=== PATIENT | male | born 1965 | race Caucasian/White ===

== ENCOUNTER 2016-11-06 05:57 | Emergency (ER) | payer MEDICAID ==
[2016-11-06 06:14] LABS: % IMMATURE GRANULYOCYTES 0.3 % (0.0-1.1); ABSOLUTE IMMATURE GRANULOCYTES 0.04 10^3/uL (0.00-0.10); ADD DIFF? NO; ADD MORPH? NO; ADD SCAN? NO; ATYPICAL LYMPHOCYTE FLAG 10 (0-99); FRAGMENT RBC FLAG 0 (0-99); HEMATOCRIT 52.3 % (40.0-51.0); HEMOGLOBIN 18.3 g/dL (13.7-17.5); LEFT SHIFT FLG 10 (0-99); LIPEMIA HEMOLYSIS FLAG 90 (0-99); MEAN CELL HEMOGLOBIN 31.6 pg (27.9-34.1); MEAN CELL VOLUME 90.2 fL (81.5-99.8); MEAN PLATELET VOLUME 10.1 fL (8.7-11.7); PLATELET CLUMPS FLAG 0 (0-99); PLATELET COUNT 325 10^3/uL (150-400); RED CELL DISTRIBUTION WIDTH 11.8 % (11.5-15.2)
[2016-11-06] MEDS ORDERED: NS 1,000 ML IV ONE ×2 (06:14)
[2016-11-06] MEDS ORDERED: ONDANSETRON 4 MG/2 ML VIAL IVP ONE (06:14)
--- NOTE | 2016-11-06 06:15 | EDPHY ---
H & P HPI/ROS: HPI The patient presents with nausea and vomiting which began at 6:30 p.m. last night. He has had about 6 episodes of nonbloody nonbilious emesis. He has not had any diarrhea. The vomiting is associated with diffuse achy abdominal pain which has been intermittent which feels like gas to him. Last month, he was admitted to the hospital for what was thought to be a viral gastroenteritis. He had tachycardia and diarrhea at that time. Stool cultures were negative. He followed up with Dr. Tsai at [facility] and since he was discharged from the hospital he generally feels more tired than usual. He is staying at a custodial and there are many people who are sick currently there. REVIEW OF SYSTEMS Constitutional: No fever, no chills. Eyes: No discharge. ENT: No sore throat. Cardiovascular: No chest pain, no palpitations. Respiratory: No cough, no shortness of breath. Gastrointestinal: No abdominal pain, no vomiting. Genitourinary: No hematuria. Musculoskeletal: No back pain. Skin: No rashes. Neurological: No headache. PMHx: Hypothyroidism Soc Hx: Lives at a custodial, works as a veterinary nurse, denies any alcohol use PHYSICAL General Appearance: Alert, no distress Eyes: Pupils equal and round no pallor or injection ENT, Mouth: Mucous membranes dry Respiratory: There are no retractions, lungs are clear to auscultation Cardiovascular: Regular rate and rhythm Gastrointestinal: Abdomen is soft with very mild left upper quadrant tenderness without rebound or guarding. Neurological: A&O, moves all extremities Skin: Warm and dry, no rashes Musculoskeletal: Neck is supple non tender Extremities: symmetrical, full range of motion Psychiatric: Patient is oriented X 3, there is no agitation Source: Patient, EMS - Personal History Tetanus Vaccine Date: within 10 years - Medical/Surgical History Hx Asthma: Yes Hx Chronic Respiratory Disease: Yes Hx Diabetes: No Hx Cardiac Disease: Yes Hx Renal Disease: No Hx Cirrhosis: No Hx Alcoholism: No Hx HIV/AIDS: No Hx Splenectomy or Spleen Trauma: No Other PMH: asthma, COPD, WANDERING ATRIAL PACEMAKER, HIATAL HERNIA, GERD - Social History Smoking Status: Former smoker Constitutional: Initial Vital Signs Temperature (C) 37.1 C 11/06/16 06:00 Heart Rate 96 11/06/16 06:00 Respiratory Rate 16 11/06/16 06:00 Blood Pressure 127/81 H 11/06/16 06:00 O2 Sat (%) 93 11/06/16 06:00 O2 Delivery Mode Room Air Allergies/Adverse Reactions: omeprazole Allergy (Unknown, Verified 10/20/16 09:15) Home Medications: Medication Instructions Recorded Ascorbic Acid [Vitamin C 500 mg 500 mg PO DAILY 10/20/16 (*)] Cholecalciferol Vit D3 [Vitamin D3 2,000 units PO DAILY 10/20/16 2000 units tab (OTC)] Levothyroxine [Synthroid 100 mcg 100 mcg PO DAILY06 10/20/16 (*)] Acetaminophen [Tylenol 325mg (*)] 650 mg PO Q4HRS PRN #0 tab 10/21/16 Ibuprofen [Motrin (*)] 400 mg PO Q4HRS PRN #0 tab 10/21/16 Promethazine HCl [Phenergan 25mg 12.5 - 25 mg PO Q6HRS PRN #20 tab 10/21/16 (*)] oxyCODONE IR [Oxycodone Ir (*)] 5 - 10 mg PO Q3HRS PRN #15 tab 10/21/16 Ondansetron Odt [Zofran Odt 4 mg 4 mg PO Q4 PRN #10 tab 11/06/16 (*)] Medical Decision Making ED Course/Re-evaluation: 6:10 a.m.- I met the paramedics at the bedside to obtain the report. We will place an IV and give the patient Zofran. We will check basic labs. 6:50 a.m.- The patient's labs have resulted and are unremarkable, except for leukocytosis which could be related to stress response from vomiting.. He is able to tolerate ice chips without difficulty. I feel he likely is mildly dehydrated from a gastroenteritis. He is currently receiving IV fluids, afterwards we will p. o. challenge him and he will likely be able to go home. Differential Diagnosis: This is a 51-year-old man with recent hospital admission for viral gastroenteritis, hypothyroidism who presents brought in by ambulance for nausea and vomiting. On exam, his vital signs are normal. He has mild left upper quadrant abdominal pain. Differential diagnosis includes viral gastroenteritis, toxin mediated enterocolitis, pancreatitis, less likely diverticulitis. - Data Points Laboratory Results: Laboratory Results 11/06/16 06:00 11/06/16 06:00 11/06/16 06:00 WBC 13.12 H 10^3/uL (3.80-9.50) RBC 5.80 10^6/uL (4.40-6.38) Hgb 18.3 H g/dL (13.7-17.5) Hct 52.3 H % (40.0-51.0) MCV 90.2 fL (81.5-99.8) MCH 31.6 pg (27.9-34.1) MCHC 35.0 g/dL (32.4-36.7) RDW 11.8 % (11.5-15.2) Plt Count 325 10^3/uL (150-400) MPV 10.1 fL (8.7-11.7) Neut % (Auto) 89.3 H % (39.3-74.2) Lymph % (Auto) 4.3 L % (15.0-45.0) [place] % (Auto) 5.6 % (4.5-13.0) Eos % (Auto) 0.1 L % (0.6-7.6) Baso % (Auto) 0.4 % (0.3-1.7) Nucleat RBC Rel Count 0.0 % (0.0-0.2) Absolute Neuts (auto) 11.72 H 10^3/uL (1.70-6.50) Absolute Lymphs (auto) 0.56 L 10^3/uL (1.00-3.00) Absolute Monos (auto) 0.74 10^3/uL (0.30-0.80) Absolute Eos (auto) 0.01 L 10^3/uL (0.03-0.40) Absolute Basos (auto) 0.05 10^3/uL (0.02-0.10) Absolute Nucleated RBC 0.00 10^3/uL (0-0.01) Immature Gran % 0.3 % (0.0-1.1) Immature Gran # 0.04 10^3/uL (0.00-0.10) Sodium 145 H mEq/L (134-144) Potassium 4.4 mEq/L (3.5-5.2) Chloride 105 mEq/L (97-110) Carbon Dioxide 24 mEq/l (22-31) Anion Gap 16 mEq/L (8-16) BUN 16 mg/dL (7-23) Creatinine 0.9 mg/dL (0.7-1.3) Estimated GFR > 60 Glucose 123 H mg/dL (70-100) Calcium 9.2 mg/dL (8.5-10.4) Total Bilirubin 1.1 mg/dL (0.1-1.4) AST 26 IU/L (17-59) ALT 29 IU/L (21-72) Alkaline Phosphatase 84 IU/L (38-126) Total Protein 7.3 g/dL (6.3-8.2) Albumin 4.3 g/dL (3.5-5.0) Lipase 24.0 IU/L (23-300) Medications Given: Discontinued Medications Sodium Chloride (Ns) 1,000 mls @ 0 mls/hr IV ONCE ONE PRN Reason: Wide Open Stop: 11/06/16 06:15 Last Admin: 11/06/16 06:15 Dose: 1,000 mls Sodium Chloride (Ns) 1,000 mls @ 0 mls/hr IV ONCE ONE PRN Reason: Wide Open Stop: 11/06/16 06:15 Last Admin: 11/06/16 06:15 Dose: 1,000 mls Ondansetron HCl (Zofran) 4 mg IVP EDNOW ONE Stop: 11/06/16 06:15 Last Admin: 11/06/16 06:15 Dose: 4 mg Departure - Departure Disposition: Home, Routine, Self-Care Clinical Impression: Nausea & vomiting Condition: Good Instructions: Acute Nausea and Vomiting (ED) Additional Instructions: Please make sure to drink plenty of clear fluids. He should return to the emergency room if your worse in any way. Referrals: Chantel Duffy, PAC [Primary Care Provider] - As per Instructions Prescriptions: Ondansetron Odt [Zofran Odt 4 mg (*)] 4 mg PO Q4 PRN #10 tab PRN Reason: Nausea/Vomiting, Can'T Take Po
[2016-11-06 06:24] LABS: ALANINE AMINOTRANSFERASE 29 IU/L (21-72); ALBUMIN 4.3 g/dL (3.5-5.0); ALKALINE PHOSPHATASE 84 IU/L (38-126); ANION GAP 16 mEq/L (8-16); ASPARTATE AMINOTRANSFERASE 26 IU/L (17-59); BILIRUBIN,TOTAL 1.1 mg/dL (0.1-1.4); CALCIUM 9.2 mg/dL (8.5-10.4); CARBON DIOXIDE 24 mEq/l (22-31); CHLORIDE 105 mEq/L (97-110); CREATININE 0.9 mg/dL (0.7-1.3); GLOMERULAR FILTRATION RATE > 60; GLUCOSE 123 mg/dL (70-100); POTASSIUM 4.4 mEq/L (3.5-5.2); SODIUM 145 mEq/L (134-144); TOTAL PROTEIN 7.3 g/dL (6.3-8.2)
[2016-11-06 08:36] VITALS: BP 109/87; PULSE 88; RESP 14; TEMP 99.1; O2SAT 91
== END 2016-11-06 08:52 | disposition home or self-care (01) ==
LOC: EDUNIT#
DX: R11.2 Nausea with vomiting, unspecified (principal); J44.9 Chronic obstructive pulmonary disease, unspecified; Z95.0 Presence of cardiac pacemaker; Z87.891 Personal history of nicotine dependence
CPT/HCPCS: 96374; J2405

== ENCOUNTER 2016-11-06 09:38 | Emergency (ER) | payer MEDICAID ==
[2016-11-06 09:46] VITALS: BP 129/80; PULSE 102; RESP 20; TEMP 98.6; O2SAT 93
--- NOTE | 2016-11-06 09:54 | EDPHY ---
H & P Stated Complaint: abd pain diarrhea/just dc this am from ed for same Time Seen by Provider: 11/06/16 09:53 HPI/ROS: CHIEF COMPLAINT: Abdominal pain and diarrhea HISTORY OF PRESENT ILLNESS: The patient is a homeless 51-year-old male who presents to the ED with complaints of abdominal pain and diarrhea. He was in the emergency department last night and received IV fluids and Zofran. He was discharged several hours ago. He returns to the ED today complaining of ongoing diarrhea. While in the emergency department earlier today the patient was noted not to have diarrhea. Additionally, the patient was admitted to the hospital the last week of September for a overnight stay for presumed viral gastroenteritis. At that point time he was noted to have a negative stool culture as well as C diff toxin essay. REVIEW OF SYSTEMS: A comprehensive 10 point review of systems is otherwise negative aside from elements mentioned in the history of present illness. Source: Patient - Personal History Current Tetanus/Diphtheria Vaccine: Yes Tetanus Vaccine Date: within 10 years - Medical/Surgical History Hx Asthma: Yes Hx Chronic Respiratory Disease: Yes Hx Diabetes: No Hx Cardiac Disease: Yes Hx Renal Disease: No Hx Cirrhosis: No Hx Alcoholism: No Hx HIV/AIDS: No Hx Splenectomy or Spleen Trauma: No Other PMH: asthma, COPD, WANDERING ATRIAL PACEMAKER, HIATAL HERNIA, GERD - Social History Smoking Status: Former smoker - Physical Exam Exam: General Appearance: Alert, no distress Eyes: Pupils equal and round no pallor or injection ENT, Mouth: Mucous membranes moist Respiratory: There are no retractions, lungs are clear to auscultation Cardiovascular: Regular rate and rhythm Gastrointestinal: Abdomen is soft and nontender, no masses, bowel sounds normal Neurological: A&O, normal motor function, normal sensory exam, normal cranial nerves Skin: Warm and dry, no rashes Musculoskeletal: Neck is supple nontender Extremities: symmetrical, full range of motion Constitutional: Initial Vital Signs Temperature (C) 37 C 11/06/16 09:43 Heart Rate 102 H 11/06/16 09:43 Respiratory Rate 20 11/06/16 09:43 Blood Pressure 129/80 H 11/06/16 09:43 O2 Sat (%) 93 11/06/16 09:43 O2 Delivery Mode Room Air Allergies/Adverse Reactions: omeprazole Allergy (Unknown, Verified 11/06/16 09:42) Home Medications: Medication Instructions Recorded Ascorbic Acid [Vitamin C 500 mg 500 mg PO DAILY 10/20/16 (*)] Cholecalciferol Vit D3 [Vitamin D3 2,000 units PO DAILY 10/20/16 2000 units tab (OTC)] Levothyroxine [Synthroid 100 mcg 100 mcg PO DAILY06 10/20/16 (*)] Acetaminophen [Tylenol 325mg (*)] 650 mg PO Q4HRS PRN #0 tab 10/21/16 Ibuprofen [Motrin (*)] 400 mg PO Q4HRS PRN #0 tab 10/21/16 Promethazine HCl [Phenergan 25mg 12.5 - 25 mg PO Q6HRS PRN #20 tab 10/21/16 (*)] oxyCODONE IR [Oxycodone Ir (*)] 5 - 10 mg PO Q3HRS PRN #15 tab 10/21/16 Ondansetron Odt [Zofran Odt 4 mg 4 mg PO Q4 PRN #10 tab 11/06/16 (*)] Medical Decision Making ED Course/Re-evaluation: I reviewed the patient's past medical records his laboratory studies from last night and prior microbiology results. The patient's abdominal examination is benign. He presents to the ED secondary to ongoing watery diarrhea in the setting of acute viral gastroenteritis. The patient has had no vomiting. He is hemodynamically stable. At this point time the patient is tolerating p.o. without vomiting. I do not feel that he requires additional IV fluid rehydration. The patient has been provided a prescription for Zofran which he is not yet filled. I have stressed to the patient the importance of using Imodium. I do not feel that further workup is indicated. The patient will be discharged from the emergency department with customary return precautions. Departure - Departure Disposition: Home, Routine, Self-Care Clinical Impression: Acute gastroenteritis Condition: Good Instructions: Acute Nausea and Vomiting (ED) Additional Instructions: 1. Zofran as needed for nausea 2. Use Imodium as directed up to 4 times a day for diarrhea. 3. Return to the ED for fever, severe abdominal pain or other acute concerns. 4. Please schedule a follow-up appointment with your primary care provider for a recheck in the next 1-2 days Referrals: Chantel Duffy, PAC [Primary Care Provider] - As per Instructions
== END 2016-11-06 10:18 | disposition home or self-care (01) ==
DX: K52.9 Noninfective gastroenteritis and colitis, unspecified (principal); J44.9 Chronic obstructive pulmonary disease, unspecified; Z95.0 Presence of cardiac pacemaker; Z87.891 Personal history of nicotine dependence

== ENCOUNTER 2017-02-24 18:11 | Emergency (ER) | payer MEDICAID ==
--- NOTE | 2017-02-24 18:43 | EDPHY ---
HPI/HX/ROS/PE/MDM Narrative: CHIEF COMPLAINT: Fatigue, seeking accommodation to be able to use CPAP tonight HPI: The patient is a homeless 51 y/o male, with a history of sleep apnea, complaining of fatigue and now-resolved ataxia onset upon waking this morning. He reports a few weeks ago he began treatment for sleep apnea with a CPAP device. He recently lost housing accomodations and was unable to plug in his CPAP last night as he slept outside. This morning he woke with ataxia and dyspnea that resolved after 15 minutes. He describes the ataxia as dizziness, difficulty with coordination, and feeling unsure of my footing. Within an hour of waking he felt mostly improved, but had some mild persisting fatigue throughout the day. He denies any falls or trauma. His symptoms felt exactly the same as his sleep apnea symptoms prior to CPAP treatment. He is primarily seeking assistance finding lodging tonight to use his CPAP to avoid recurrent symptoms. He denies blurred vision, diplopia, weakness, paresthesias. No history of hypertension, hyperlipidemia, cardiac disease, anticoagulants or aspirin use. REVIEW OF SYSTEMS: Aside from elements discussed in the HPI, a comprehensive 10-point review of systems was reviewed and is negative. PAST MEDICAL HISTORY: Obstructive sleep apnea (50+ episodes per hour without CPAP, vs. 6 episodes with), hypothyroidism, multifocal atrial tachycardia SOCIAL HISTORY: Homeless, recently in homeless housing which ended 02/23/17. Former smoker, Alcohol consumption rare. PCP at [facility]. VITAL SIGNS: Reviewed by me GENERAL: Well-developed, well-nourished, resting comfortably in no respiratory distress. HEENT: Atraumatic. Eyes: No icterus, no injection. Mouth: moist mucous membranes. No erythema or lesions. Ears: Right TM obscured by cerumen. Neck: supple with no adenopathy. LUNGS: Clear to auscultation bilaterally, no wheezes, rhonchi or rales. CARDIAC: Regular rate and rhythm, no rubs, murmurs or gallops. ABDOMEN: Soft, nontender, nondistended, bowel sounds normal. BACK: No CVA tenderness. EXTREMITIES: No trauma. No edema. Range of motion is normal throughout. NEURO: Alert and oriented, grossly nonfocal. No pronator drift. Face symmetric. Normal strength in all extremities. Normal [id number]. Normal [id number]. Normal gait. SKIN: Warm and dry, no rash. PSYCHIATRIC: Normal mentation, no agitation. Portions of this note were transcribed by a medical supervisor. I personally performed a history, physical exam, medical decision making, and confirmed accuracy of information the transcribed note. ED Course: distribution manager to see. 51-year-old male with history of ataxia which she states develops whenever he is unable to use his CPAP machine. He describes feeling pain discoordinated when he wakes in the morning which lasts for 15-20 minutes. Currently he has a normal neurologic exam and no headache. He is requesting assistance with finding a place to sleep tonight where he can plug in his CPAP machine. Unfortunately, we were unable to assist the patient finding accommodations for this evening, however, case management will work to have him placed in a alf starting tomorrow. MDM: Patient seen by case management. On review the records that demonstrates the patient has had history previously of seeking social supports by emergency department visit. Rosalva, from ED case management, consulted with the patient. Unfortunately, there is no alf beds available for the patient. Contact was also made with surrounding counties including [facility] and [place] to search for possible placement. Case management will make contact with the alf tomorrow to ensure that the patient has a bed for tomorrow evening. Differential diagnoses for the patient's symptom complex was considered including but not limited to hypoxia, stroke, TIA, electrolyte abnormalities, drug or alcohol intoxication, drug or alcohol withdrawal. General Time Seen by Provider: 02/24/17 18:20 Initial Vital Signs: Initial Vital Signs Temperature (C) 36.8 C 02/24/17 18:16 Heart Rate 66 02/24/17 18:16 Respiratory Rate 20 02/24/17 18:16 Blood Pressure 119/81 H 02/24/17 18:16 O2 Sat (%) 94 02/24/17 18:16 O2 Delivery Mode Room Air Allergies/Adverse Reactions: omeprazole Allergy (Unknown, Verified 02/24/17 18:15) Home Medications: Medication Instructions Recorded Ascorbic Acid [Vitamin C 500 mg 500 mg PO DAILY 10/20/16 (*)] Cholecalciferol Vit D3 [Vitamin D3 2,000 units PO DAILY 10/20/16 2000 units tab (OTC)] Levothyroxine [Synthroid 100 mcg 100 mcg PO DAILY06 10/20/16 (*)] Acetaminophen [Tylenol 325mg (*)] 650 mg PO Q4HRS PRN #0 tab 10/21/16 Minoxidil 02/24/17 Departure - Departure Disposition: Home, Routine, Self-Care Clinical Impression: Obstructive sleep apnea Fatigue Qualifiers: Fatigue type: other Qualified Code(s): R53.83 - Other fatigue Condition: Good Instructions: Fatigue (ED) Additional Instructions: 1. Follow up with resources provided by case management. 2. Follow up with your primary care provider for symptoms not improved over the next 2-3 days. 3. Return to the ED for any worsening of condition such as vision changes, weakness or numbness on one side of your body, or severe headache. Referrals: Juliette Hedrick DO [Primary Care Provider] - As per Instructions Report Scribed for: Lisa Mccullough Report Scribed by: Sangita Lizarraga Date of Report: 02/24/17 Time of Report: 18:44
[2017-02-24 19:39] VITALS: BP 122/74; PULSE 70; RESP 14; TEMP 98.1; O2SAT 93
== END 2017-02-24 19:38 | disposition home or self-care (01) ==
DX: G47.33 Obstructive sleep apnea (adult) (pediatric) (principal)

== ENCOUNTER 2017-02-27 18:04 | Emergency (ER) | payer MEDICAID ==
[2017-02-27 18:10] VITALS: TEMP 98.8
--- NOTE | 2017-02-27 18:25 | EDPHY ---
H & P Time Seen by Provider: 02/27/17 18:21 HPI/ROS: Chief complaint. Chest pain HPI. 51-year-old male presents emergency department with chest pain that began this morning. He also had it yesterday. He describes tightness across his chest. No radiation. He describes as worse with walking. Shortness of breath and some nausea. No fever, cough. Vomited 2 days ago. No leg symptoms seen 3 days ago for respiratory difficulty as the [facility] closed and he was unable to plug in his CPAP machine. He stated the holiday and last night. ROS Constitutional. no fever/chills, no weakness Eyes. no problems with vision ENT. no sore throat, no nasal drainage Cardiovascular. Chest tightness Respiratory. Shortness of breath Abdominal. no abdominal pain, no nausea/vomiting, no diarrhea . no problems urinating MS. no calf pain/swelling, no neck/back pain, no joint pain Skin. no rash Lymph. no swollen glands Neuro. no headache, no dizziness, no difficulty walking or with speech Past Medical/Surgical History: COPD, asthma. He does not take any medications for these. He describes wandering atrial pacemaker, hiatal hernia, GERD. Family history grandfather had angina Social History: Single, homeless, nonsmoker, no alcohol Smoking Status: Former smoker Physical Exam: General Appearance: Alert well-developed male no distress vital signs are stable Eyes: Pupils equal and round no pallor or injection. ENT, Mouth: Mucous membranes are moist. Respiratory: There are no retractions, lungs are clear to auscultation. Cardiovascular: Regular rate and rhythm. Gastrointestinal: Abdomen is soft and nontender, no masses, bowel sounds normal. Neurological: Awake and alert, sensory and motor exams grossly normal. Skin: Warm and dry, no rashes. Musculoskeletal: Neck is supple nontender. Extremities symmetrical, full range of motion. Psychiatric: Patient is oriented X 3, there is no agitation. Constitutional: Initial Vital Signs Temperature (C) 37.1 C 02/27/17 18:08 Heart Rate 75 02/27/17 18:08 Respiratory Rate 16 02/27/17 18:08 Blood Pressure 129/78 H 02/27/17 18:08 O2 Sat (%) 97 02/27/17 18:08 O2 Delivery Mode Room Air Allergies/Adverse Reactions: omeprazole Allergy (Unknown, Verified 02/27/17 18:08) Home Medications: Medication Instructions Recorded Ascorbic Acid [Vitamin C 500 mg 500 mg PO DAILY 10/20/16 (*)] Cholecalciferol Vit D3 [Vitamin D3 2,000 units PO DAILY 10/20/16 2000 units tab (OTC)] Levothyroxine [Synthroid 100 mcg 100 mcg PO DAILY06 10/20/16 (*)] Acetaminophen [Tylenol 325mg (*)] 650 mg PO Q4HRS PRN #0 tab 10/21/16 Minoxidil 02/24/17 Ondansetron 02/27/17 Medical Decision Making - Diagnostics EKG Interpretation: EKG interpreted by me shows normal sinus rhythm with normal interval and left axis deviation. QRS is normal there is no significant ST elevation or depression. No arrhythmia. The rate is 70 EKG 2. At 8:30 p.m. shows normal sinus rhythm normal interval and left axis deviation no significant ST elevation or depression. No arrhythmia. The rate is 66. No change from previous EKG Imaging Results: Imaging Impressions Chest X-Ray 02/27/17 19:20 Impression: Negative frontal chest radiograph. One-view chest x-ray reviewed by me and is negative for active disease Procedures: IV normal saline, monitor ED Course/Re-evaluation: Re-evaluation 8:15 p.m. patient is stable. 1st troponin is negative. EKG is normal. Re-evaluation 10:00 p.m. patient is stable. No chest discomfort. 2nd troponin, EKG are normal Normal. Patient and I discussed treatment plan and lab results including criteria for return. We discussed importance of follow-up further evaluation. He expresses understanding and agreement Differential Diagnosis: I considered acute coronary syndrome, COPD exacerbation, pulmonary embolus, pneumonia - Data Points Laboratory Results: Laboratory Results 02/27/17 18:25 02/27/17 18:25 02/27/17 02/27/17 02/27/17 21:00 18:25 18:25 WBC RBC Hgb Hct MCV MCH MCHC RDW Plt Count MPV Neut % (Auto) Lymph % (Auto) [place] % (Auto) Eos % (Auto) Baso % (Auto) Nucleat RBC Rel Count Absolute Neuts (auto) Absolute Lymphs (auto) Absolute Monos (auto) Absolute Eos (auto) Absolute Basos (auto) Absolute Nucleated RBC Immature Gran % Immature Gran # D-Dimer 0.34 ug/mLFEU ug/mLFEU (0.00-0.50) Sodium 138 mEq/L mEq/L (134-144) Potassium 3.9 mEq/L mEq/L (3.5-5.2) Chloride 102 mEq/L mEq/L (97-110) Carbon Dioxide 26 mEq/l mEq/l (22-31) Anion Gap 10 mEq/L mEq/L (8-16) BUN 16 mg/dL mg/dL (7-23) Creatinine 1.0 mg/dL mg/dL (0.7-1.3) Estimated GFR > 60 Glucose 91 mg/dL mg/dL (70-100) Calcium 9.0 mg/dL mg/dL (8.5-10.4) Troponin I < 0.012 ng/mL ng/mL < 0.012 ng/mL ng/mL (0-0.034) (0-0.034) 02/27/17 18:25 WBC 9.01 10^3/uL 10^3/uL (3.80-9.50) RBC 5.33 10^6/uL 10^6/uL (4.40-6.38) Hgb 16.2 g/dL g/dL (13.7-17.5) Hct 47.6 % % (40.0-51.0) MCV 89.3 fL fL (81.5-99.8) MCH 30.4 pg pg (27.9-34.1) MCHC 34.0 g/dL g/dL (32.4-36.7) RDW 12.0 % % (11.5-15.2) Plt Count 232 10^3/uL 10^3/uL (150-400) MPV 9.9 fL fL (8.7-11.7) Neut % (Auto) 69.0 % % (39.3-74.2) Lymph % (Auto) 18.2 % % (15.0-45.0) [place] % (Auto) 11.5 % % (4.5-13.0) Eos % (Auto) 0.8 % % (0.6-7.6) Baso % (Auto) 0.3 % % (0.3-1.7) Nucleat RBC Rel Count 0.0 % % (0.0-0.2) Absolute Neuts (auto) 6.21 10^3/uL 10^3/uL (1.70-6.50) Absolute Lymphs (auto) 1.64 10^3/uL 10^3/uL (1.00-3.00) Absolute Monos (auto) 1.04 10^3/uL H 10^3/uL (0.30-0.80) Absolute Eos (auto) 0.07 10^3/uL 10^3/uL (0.03-0.40) Absolute Basos (auto) 0.03 10^3/uL 10^3/uL (0.02-0.10) Absolute Nucleated RBC 0.00 10^3/uL 10^3/uL (0-0.01) Immature Gran % 0.2 % % (0.0-1.1) Immature Gran # 0.02 10^3/uL 10^3/uL (0.00-0.10) D-Dimer Sodium Potassium Chloride Carbon Dioxide Anion Gap BUN Creatinine Estimated GFR Glucose Calcium Troponin I Medications Given: Discontinued Medications Aspirin (Aspirin) 324 mg PO EDNOW ONE Stop: 02/27/17 19:20 Last Admin: 02/27/17 19:32 Dose: 324 mg Departure - Departure Disposition: Home, Routine, Self-Care Clinical Impression: Chest pain Qualifiers: Chest pain type: unspecified Qualified Code(s): R07.9 - Chest pain, unspecified Condition: Good Instructions: Chest Pain (ED) Additional Instructions: Take 1 aspirin daily. Return for worsening chest discomfort. Follow up at [facility] on Thursday. Referrals: Juliette Hedrick DO [Primary Care Provider] - 2-3 days without fail
--- NOTE | 2017-02-27 18:27 | CPEKG ---
Heart Rate: 74 RR Interval: 811 P-R Interval: 152 QRSD Interval: 82 QT Interval: 368 QTC Interval: 409 P Gos[place]: 50 QRS [place]: -6 T Wave [place]: 18 EKG Severity - NORMAL ECG - EKG Impression: SINUS RHYTHM Electronically Signed By: Beka Marquez 28-Feb-2017 00:13:22
[2017-02-27 18:45] VITALS: O2SAT 94
[2017-02-27] MEDS ORDERED: ASPIRIN 81 MG CHEWABLE TAB PO ONE (19:19)
[2017-02-27 19:24] LABS: % IMMATURE GRANULYOCYTES 0.2 % (0.0-1.1); ABSOLUTE IMMATURE GRANULOCYTES 0.02 10^3/uL (0.00-0.10); ADD DIFF? NO; ADD MORPH? NO; ADD SCAN? NO; ATYPICAL LYMPHOCYTE FLAG 0 (0-99); FRAGMENT RBC FLAG 0 (0-99); HEMATOCRIT 47.6 % (40.0-51.0); HEMOGLOBIN 16.2 g/dL (13.7-17.5); LEFT SHIFT FLG 10 (0-99); LIPEMIA HEMOLYSIS FLAG 90 (0-99); MEAN CELL HEMOGLOBIN 30.4 pg (27.9-34.1); MEAN CELL VOLUME 89.3 fL (81.5-99.8); MEAN PLATELET VOLUME 9.9 fL (8.7-11.7); PLATELET CLUMPS FLAG 10 (0-99); PLATELET COUNT 232 10^3/uL (150-400); RED BLOOD CELL COUNT 5.33 10^6/uL (4.40-6.38)
[2017-02-27 19:55] LABS: ANION GAP 10 mEq/L (8-16); CARBON DIOXIDE 26 mEq/l (22-31); CHLORIDE 102 mEq/L (97-110); GLOMERULAR FILTRATION RATE > 60; GLUCOSE 91 mg/dL (70-100); POTASSIUM 3.9 mEq/L (3.5-5.2); SODIUM 138 mEq/L (134-144)
[2017-02-27 20:06] LABS: TROPONIN I < 0.012 ng/mL (0-0.034)
--- NOTE | 2017-02-27 20:26 | CPEKG ---
Heart Rate: 66 RR Interval: 909 P-R Interval: 152 QRSD Interval: 78 QT Interval: 388 QTC Interval: 407 P [place]ada: 58 QRS Nada: -10 T Wave Nada: 34 EKG Severity - NORMAL ECG - EKG Impression: SINUS RHYTHM Electronically Signed By: Beka Marquez 28-Feb-2017 00:13:22
[2017-02-27 22:43] VITALS: BP 120/72; PULSE 67; RESP 18
== END 2017-02-27 22:42 | disposition home or self-care (01) ==
DX: R07.89 Other chest pain (principal); J44.9 Chronic obstructive pulmonary disease, unspecified; Z87.891 Personal history of nicotine dependence; Z95.0 Presence of cardiac pacemaker

== ENCOUNTER 2017-02-28 00:49 | Emergency (ER) | payer MEDICAID ==
[2017-02-28 00:55] VITALS: BP 124/74; PULSE 74; RESP 16; TEMP 98.6; O2SAT 95
--- NOTE | 2017-02-28 01:03 | EDPHY ---
H & P Stated Complaint: fatigue, sleep apnea issues HPI/ROS: HPI CHIEF COMPLAINT: "I would like to sleep here" HISTORY OF PRESENT ILLNESS: Patient very pleasant 51-year-old male, homeless, has obstructive sleep apnea, presents emergency room after was found sleeping in the waiting room. When he was asked by security that he needs to go somewhere else to sleep then decided check in emergency room. Upon my evaluation he has no medical complaints he denies chest pain or shortness of breath. He tells me that would like to sleep here. States that he supposed to use a sleep apnea machine but is unable to do so as he has no local residence the plug into or a place to sleep. When I asked him exactly what to do to help him tonight he states that he would like to sleep here in the emergency room overnight and then go early in the morning when it is daylight. I explained unfortunately that is not safe for him or other patients at this time the hospital is full in the emergency room is exceedingly busy at this time and I cannot allow him to stay sleeping in the emergency room. Upon evaluation he has no medical complaints specifically he was seen here earlier this evening with chest discomfort he had a normal cardiac workup with 2 -troponins and nonischemic EKGs. Given the patient has no focal medical complaints at this time and is requesting to sleep here I will try to work with nursing staff to get him resources for place that he can go. Past Medical History: Obstructive sleep apnea Past Surgical History: Recent surgery Social History: Homeless, denies drug use Family History: Noncontributory ROS REVIEW OF SYSTEMS: A comprehensive 10 point review of systems is otherwise negative aside from elements mentioned in the history of present illness. Exam Constitutional appears well nontoxic, triage nursing summary reviewed, vital signs reviewed, awake/alert. Eyes normal conjunctivae and sclera, EOMI, PERRLA. HENT normal inspection, atraumatic, moist mucus membranes, no epistaxis, neck supple/ no meningismus, no raccoon eyes. Respiratory clear to auscultation bilaterally, normal breath sounds, no respiratory distress, no wheezing. Cardiovascular rate normal, regular rhythm, no murmur, no edema, distal pulses normal. Gastrointestinal soft, non-tender, no rebound, no guarding, normal bowel sounds, no distension, no pulsatile mass. Genitourinary no CVA tenderness. Musculoskeletal no midline vertebral tenderness, full range of motion, no calf swelling, no tenderness of extremities, no meningismus, good pulses, neurovascularly intact. Skin pink, warm, & dry, no rash, skin atraumatic. Neurologic awake, alert and oriented x 3, AAOx3, moves all 4 extremities equally, motor intact, sensory intact, CN II-XII intact, normal cerebellar, normal vision, normal speech. Psychiatric normal mood/affect. Heme/Lymph/Immune no lymphadenopathy. Differential Diagnosis: Includes but is not limited to in a particular order, homelessness, skilled nursing seeking, need for place to sleep, obstructive sleep apnea Medical Decision Making: Give this patient has no focal medical complaint is requesting sleep here will try to see what Resource rehab to help him. However he will be discharged from the emergency room. Source: Patient - Personal History Tetanus Vaccine Date: within 10 years - Medical/Surgical History Hx Asthma: Yes Hx Chronic Respiratory Disease: Yes Hx Diabetes: No Hx Cardiac Disease: Yes Hx Renal Disease: No Hx Cirrhosis: No Hx Alcoholism: No Hx HIV/AIDS: No Hx Splenectomy or Spleen Trauma: No Other PMH: asthma, COPD, WANDERING ATRIAL PACEMAKER, HIATAL HERNIA, GERD/ [place] - Social History Smoking Status: Former smoker Constitutional: Initial Vital Signs Temperature (C) 37 C 02/28/17 00:52 Heart Rate 74 02/28/17 00:52 Respiratory Rate 16 02/28/17 00:52 Blood Pressure 124/74 H 02/28/17 00:52 O2 Sat (%) 95 02/28/17 00:52 O2 Delivery Mode Room Air Allergies/Adverse Reactions: omeprazole Allergy (Unknown, Verified 02/28/17 00:52) Home Medications: Medication Instructions Recorded Ascorbic Acid [Vitamin C 500 mg 500 mg PO DAILY 10/20/16 (*)] Cholecalciferol Vit D3 [Vitamin D3 2,000 units PO DAILY 10/20/16 2000 units tab (OTC)] Levothyroxine [Synthroid 100 mcg 100 mcg PO DAILY06 10/20/16 (*)] Acetaminophen [Tylenol 325mg (*)] 650 mg PO Q4HRS PRN #0 tab 10/21/16 Minoxidil 02/24/17 Ondansetron 02/27/17 Departure - Departure Disposition: Home, Routine, Self-Care Clinical Impression: Homeless Condition: Good Instructions: Fatigue (ED) Additional Instructions: 1. Return emergency room if you have any worsening symptoms questions or concerns. Referrals: Juliette Hedrick DO [Primary Care Provider] - As per Instructions
== END 2017-02-28 01:23 | disposition home or self-care (01) ==
LOC: EEVIPCON 00:49
DX: Z59.0 Homelessness (principal); J44.9 Chronic obstructive pulmonary disease, unspecified; Z87.891 Personal history of nicotine dependence; Z95.0 Presence of cardiac pacemaker

== ENCOUNTER 2017-07-04 10:24 | Emergency (ER) | payer MEDICAID ==
[2017-07-04 10:31] VITALS: BP 122/80; PULSE 72; RESP 16; TEMP 98.4; O2SAT 97
--- NOTE | 2017-07-04 10:43 | EDPHY ---
H & P Smoking Status: Former smoker Time Seen by Provider: 07/04/17 10:35 HPI/ROS: CHIEF COMPLAINT: Multiple itching bites HISTORY OF PRESENT ILLNESS: 52-year-old male, homeless, living in the skilled nursing, walked to the ER concerned about multiple highly pruritic lesions to his legs and arms, concerned about possible scabies versus mosquito bites verses West Nile virus. He denies flu-like symptoms, denies headache, denies gait instability. I] PHYSICAL EXAM (Prior to examination, patient consented to physical exam, hands were washed and my usual and customary physical exam procedures followed) 1) GENERAL: Well-developed, well-nourished, alert and oriented. Appears to be in no acute distress. Answering questions appropriately 2) HEAD: Normocephalic 3) HEENT: sclera anicteric 4) LUNGS: Breathing comfortably. 5) SKIN: on the patient's arms and legs he has multiple excoriated lesions which appear to be consistent with scabies. No signs of super infection or cellulitis. 6) MUSCULOSKELETAL: observed ambulating with stable steady gait (Yumiko Pichardo) Constitutional: Initial Vital Signs Temperature (C) 36.9 C 07/04/17 10:27 Heart Rate 72 07/04/17 10:27 Respiratory Rate 16 07/04/17 10:27 Blood Pressure 122/80 H 07/04/17 10:27 O2 Sat (%) 97 07/04/17 10:27 O2 Delivery Mode Room Air Allergies/Adverse Reactions: omeprazole Allergy (Unknown, Verified 02/28/17 00:52) Home Medications: Medication Instructions Recorded Levothyroxine 07/04/17 Permethrin 5% [Elimite 5%] 60 familia TP ONCE #1 cream 07/04/17 MDM/Departure - MDM ED Course/Re-evaluation: Doubt West Nile virus. Given his current living situation clinical presentation we discussed more than likely possibility of scabies. Discussed usual and customary scabies precautions, instructions, washing, starting patient on permethrin. (Yumiko Pichardo) I did not see this patient while he was in the emergency department. However his care was discussed with the PA while the patient was in the department. I agree with treatment plan and management (Beka Marquez) - Depart Disposition: Home, Routine, Self-Care Clinical Impression: Scabies Condition: Good Instructions: Scabies (ED) Additional Instructions: Return to the ER if you develop painful lesions anywhere on her skin, usual headaches, fevers or any other symptoms that concern you Prescriptions: Permethrin 5% [Elimite 5%] 60 familia TP ONCE #1 cream Referrals: Juliette Hedrick DO [Primary Care Provider] - 2-3 days, call for appt.
== END 2017-07-04 10:54 | disposition home or self-care (01) ==
DX: B86 Scabies (principal); Z87.891 Personal history of nicotine dependence

== ENCOUNTER 2018-02-01 19:14 | Emergency (ER) | payer MEDICAID ==
[2018-02-01 19:28] VITALS: BP 124/86
[2018-02-01] MEDS ORDERED: OFLOXACIN 0.3% SOLN PREPACK OPHT.BTL TAKEHOME ONE (19:28)
--- NOTE | 2018-02-01 19:31 | EDPHY ---
H & P Stated Complaint: L EYE PAIN. SEEN BY OPTHO TODAY STILL IN PAIN Time Seen by Provider: 02/01/18 19:22 HPI/ROS: CHIEF COMPLAINT: Left eye infection HISTORY OF PRESENT ILLNESS: The patient is a 52-year-old man who comes to the emergency department EMS for a left eye infection. He was seen by [facility] and Ophthalmology today and was diagnosed with corneal abrasion and conjunctivitis. He has discharge that is yellowish in color. The tea bag packer placed a medicated contact lens and wrote him a prescription for Ocuflox as well as prednisolone drops and Toradol drops. He states that [facility] did not have these prescriptions for him so he decided to call an ambulance to come to the ER. His symptoms have been unchanged. He has not had a fever. REVIEW OF SYSTEMS: Constitutional: denies: chills, fever, recent illness, recent injury EENTM: See HPI Respiratory: denies: cough, shortness of breath Cardiac: denies: chest pain, irregular heart rate, lightheadedness, palpitations Gastrointestinal/Abdominal: denies: abdominal pain, diarrhea, nausea, vomiting, blood streaked stools Genitourinary: denies: dysuria, frequency, hematuria, pain Musculoskeletal: denies: joint pain, muscle pain Skin: denies: lesions, rash, jaundice, bruising Neurological: denies: headache, numbness, paresthesia, tingling, dizziness, weakness Hematologic/Lymphatic: denies: blood clots, easy bleeding, easy bruising Immunologic/allergic: denies: HIV/AIDS, transplant EXAM: GENERAL: Well-appearing, well-nourished and in no acute distress. HEAD: Atraumatic, normocephalic. EYES: Conjunctivae will injection and yellow discharge to left eye, medicated contact lens in place, eye patch in place. No surrounding cellulitis. ENT: TMs normal, nares patent, oropharynx clear without exudates. Moist mucous membranes. NECK: Normal range of motion, supple without lymphadenopathy or JVD. LUNGS: Breath sounds clear to auscultation bilaterally and equal. No wheezes rales or rhonchi. HEART: Regular rate and rhythm without murmurs, rubs or gallops. ABDOMEN: Soft, nontender, normoactive bowel sounds. No guarding, no rebound. No masses appreciated. BACK: No CVA tenderness, no spinal tenderness, step-offs or deformities EXTREMITIES: Normal range of motion, no pitting or edema. No clubbing or cyanosis. NEUROLOGICAL: Cranial nerves II through XII grossly intact. Normal speech, normal gait. 5/5 strength, normal movement in all extremities, normal sensation PSYCH: Normal mood, normal affect. SKIN: Warm, dry, normal turgor, no visible rashes or lesions. Source: Patient Exam Limitations: No limitations - Personal History Current Tetanus/Diphtheria Vaccine: Yes Current Tetanus Diphtheria and Acellular Pertussis (TDAP): Yes Tetanus Vaccine Date: within 10 years - Medical/Surgical History Hx Asthma: Yes Hx Chronic Respiratory Disease: Yes Hx Diabetes: No Hx Cardiac Disease: No Hx Renal Disease: No Hx Cirrhosis: No Hx Alcoholism: No Hx HIV/AIDS: No Hx Splenectomy or Spleen Trauma: No Other PMH: WANDERING ATRIAL PACEMAKER, HIATAL HERNIA, GERD/ [place] - Family History Significant Family History: No pertinent family hx - Social History Smoking Status: Former smoker Alcohol Use: Occasionally Drug Use: None Constitutional: Initial Vital Signs Temperature (C) 37.5 C 02/01/18 19:21 Heart Rate 76 02/01/18 19:21 Respiratory Rate 16 02/01/18 19:21 Blood Pressure 124/86 H 02/01/18 19:21 O2 Sat (%) 95 02/01/18 19:21 O2 Delivery Mode Room Air Allergies/Adverse Reactions: omeprazole Allergy (Unknown, Verified 02/01/18 19:28) Home Medications: Medication Instructions Recorded Levothyroxine 07/04/17 Permethrin 5% [Elimite 5%] 60 familia TP ONCE #1 cream 07/04/17 Medical Decision Making ED Course/Re-evaluation: The patient has been treated appropriately by an tea bag packer. He however does not have the medications. We will start him on Ocuflox here. We do not have steroid drops or Toradol drops. He will need to go to the pharmacist for these. The patient understands and agrees with this plan. Will discharge him at this time. Differential Diagnosis: Partial list of the Differential diagnosis considered include but were not limited to; conjunctivitis, corneal abrasion and although unlikely based on the history and physical exam, I also considered perforation, preseptal cellulitis, perforation. I discussed these differential diagnoses and the plan with the patient as well as the usual and expected course. The patient understands that the diagnosis is provisional and that in medicine we are not always correct and that further workup is often warranted. Usual and customary warnings were given. All of the patient's questions were answered. The patient was instructed to return to the emergency department should the symptoms at all worsen or return, otherwise to followup with the physician as we discussed. - Data Points Medications Given: Discontinued Medications Ofloxacin (Ocuflox 0.3% Opht Drops Prepack) 1 btl TAKEHOME EDNOW ONE Stop: 02/01/18 19:29 Last Admin: 02/01/18 19:45 Dose: 1 btl Departure - Departure Disposition: Home, Routine, Self-Care Clinical Impression: Conjunctivitis, left eye Qualifiers: Conjunctivitis type: acute Acute conjunctivitis type: bacterial Qualified Code( s): H10.32 - Unspecified acute conjunctivitis, left eye Corneal abrasion, left Qualifiers: Encounter type: subsequent encounter Qualified Code(s): S05.02XD - Injury of conjunctiva and corneal abrasion without foreign body, left eye, subsequent encounter Condition: Fair Instructions: Ofloxacin (Into the eye), Corneal Abrasion (ED), Conjunctivitis ( ED) Referrals: Patient,NotPresent [Unknown] - As per Instructions [facility],. [Clinic] - As per Instructions
== END 2018-02-01 19:45 | disposition home or self-care (01) ==
LOC: EDUNIT#
DX: S05.02XA Injury of conjunctiva and corneal abrasion without foreign body, left eye, initial encounter (principal); H10.32 Unspecified acute conjunctivitis, left eye; J45.909 Unspecified asthma, uncomplicated; Z87.891 Personal history of nicotine dependence; X58.XXXA Exposure to other specified factors, initial encounter

== ENCOUNTER → 2018-12-11 | Outpatient (CLI) | payer MEDICAID | LOC: FCPNEURO 20:00 | PROVIDERS: ATTEND Internal Medicine Sleep Medicine | DX: G47.33 Obstructive sleep apnea (adult) (pediatric) (principal) ==